=== PATIENT | female | born 1995 | race Two or more races ===

== ENCOUNTER 2021-03-01 12:10 | Observation (INO) | payer MEDICAID ==
[~2021-03-01] VITALS: Ht 162.6 cm; Wt 125.2 kg
[~2021-03-01 12:10] MED LIST: PREN-96 PO
[2021-03-01 12:58] LABS: Basophils # (auto) 0 10 ^3/uL (0-0.2); Basophils % (auto) 0.5 % (0.0-2.0); Eosinophils # (auto) 0 10 ^3/uL (0-0.8); Eosinophils % (auto) 0.5 % (0.0-7.0); Hematocrit 38.2 % (36.0-46.0); Hemoglobin 13.1 g/dL (12.2-16.2); Lymphocytes % (auto) 25.9 % (10.0-50.0); Mean Corpuscular Hemoglobin 30.9 pg (28.0-32.0); Mean Corpuscular Hgb Conc. 34.2 g/dL (32.0-36.0); Mean Corpuscular Volume 90.4 fL (80.0-100.0); Monocytes # (auto) 0.4 10 ^3/uL (0-1.3); Monocytes % (auto) 5.1 % (0.0-12.0); Neutrophils # (auto) 5.2 10 ^3/uL (1.6-8.6); Nucleated Red Blood Cells % 0.1 %; Red Blood Cells 4.22 10^6/uL (4.0-5.20); Red Cell Distribution Width 14.5 % (11.8-14.3); White Blood Cell 7.7 10^3/uL (4.4-10.8)
[2021-03-01 13:11] LABS: Albumin 2.8 g/dL (3.4-5.0); Calcium 8.4 mg/dL (8.5-10.1); Potassium 4.2 mmol/L (3.5-5.1); Uric Acid 4.2 mg/dL (2.6-6.0)
[2021-03-01 13:14] LABS: BUN/Creatinine Ratio 15.5; Bilirubin, Total 0.4 mg/dL (0.2-1.0); Total Protein 6.4 g/dL (6.4-8.2)
[2021-03-01 13:23] LABS: INR 0.95 (0.9-1.15); Partial Thromboplastin Time 29.1 sec (23.6-33.0)
[2021-03-01 13:30] LABS: Urine Bacteria FEW /hpf (None Seen); Urine Blood Negative /uL (Negative); Urine Mucus FEW (None Seen); Urine Specific Gravity 1.014 (1.001-1.035); Urine WBC 2 /hpf (0 - 5)
[2021-03-01 13:40] LABS: Protein, Urine 16.1 mg/dL (0.0-11.9)
[2021-03-07] MEDS ORDERED: IBUP600T27 PO (05:18)
== END 2021-03-01 14:07 | disposition home or self-care (01) ==
LOC: LDRP 12:10
PROVIDERS: ADMIT Obstetrics & Gynecology; ATTEND Obstetrics & Gynecology
DX: O13.3 Gestational [pregnancy-induced] hypertension without significant proteinuria, third trimester (principal); O62.9 Abnormality of forces of labor, unspecified; Z3A.39 39 weeks gestation of pregnancy
CPT/HCPCS: 36415; 59025; 80053; 81001; 81002; 82570; 84156; 84550; 85025; 85379; 85610; 85730; 94760; G0378; G0379

== ENCOUNTER 2021-03-03 08:03 | Observation (INO) | payer MEDICAID ==
[~2021-03-03] VITALS: Ht 4 cm; Wt 125.2 kg
[2021-03-07] MEDS ORDERED: IBUP600T27 PO (05:18)
== END 2021-03-03 09:52 | disposition home or self-care (01) ==
LOC: LDRP 08:03
PROVIDERS: ADMIT Obstetrics & Gynecology; ATTEND Obstetrics & Gynecology
DX: O62.9 Abnormality of forces of labor, unspecified (principal); O42.92 Full-term premature rupture of membranes, unspecified as to length of time between rupture and onset of labor; O48.0 Post-term pregnancy; Z3A.40 40 weeks gestation of pregnancy
CPT/HCPCS: 59025; 76818; 81002; 84112; 94760; G0378; G0379; Q0114

== ENCOUNTER 2021-03-03 21:42 | Observation (INO) | payer MEDICAID | END 2021-03-03 22:25 | disposition home or self-care (01) | LOC: LDRP 21:42 | PROVIDERS: ADMIT Obstetrics & Gynecology; ATTEND Obstetrics & Gynecology | DX: O48.0 Post-term pregnancy (principal); O62.9 Abnormality of forces of labor, unspecified; Z3A.40 40 weeks gestation of pregnancy | CPT/HCPCS: 59025; 81002; G0378 ==

== ENCOUNTER 2021-03-05 11:35 | Inpatient (IN) | payer MEDICAID ==
[~2021-03-05] VITALS: Ht 162.6 cm; Wt 125.2 kg
[2021-03-05 13:04] LABS: Urine Bacteria FEW /hpf (None Seen); Urine Blood 2+ /uL (Negative); Urine Hyaline Cast FEW /lpf (0 - 2); Urine Mucus FEW (None Seen); Urine Specific Gravity 1.027 (1.001-1.035); Urine WBC 4 /hpf (0 - 5)
[2021-03-05 13:15] LABS: Amphetamine Screen, Urine NEGATIVE (NEGATIVE); Barbiturate Scree,Urine NEGATIVE (NEGATIVE); Benzodiazephine Screen, Urine NEGATIVE (NEGATIVE); Cannabinoid Screen, Urine NEGATIVE (NEGATIVE); Cocaine Screen, Urine NEGATIVE (NEGATIVE); Opiate Scree,Urine NEGATIVE (NEGATIVE); Phencyclidine Screen, Urine NEGATIVE (NEGATIVE)
[2021-03-05 13:27] LABS: Basophils # (auto) 0 10 ^3/uL (0-0.2); Basophils % (auto) 0.2 % (0.0-2.0); Eosinophils # (auto) 0 10 ^3/uL (0-0.8); Eosinophils % (auto) 0.6 % (0.0-7.0); Hematocrit 37.3 % (36.0-46.0); Hemoglobin 12.8 g/dL (12.2-16.2); Lymphocytes # (auto) 2.1 10 ^3/uL (0.4-5.4); Mean Corpuscular Hemoglobin 30.8 pg (28.0-32.0); Mean Corpuscular Hgb Conc. 34.3 g/dL (32.0-36.0); Mean Corpuscular Volume 89.8 fL (80.0-100.0); Monocytes # (auto) 0.4 10 ^3/uL (0-1.3); Monocytes % (auto) 5.6 % (0.0-12.0); Neutrophils # (auto) 5.1 10 ^3/uL (1.6-8.6); Neutrophils % (auto) 66.6 % (37.0-80.0); Nucleated Red Blood Cells % 0.1 %; Red Blood Cells 4.16 10^6/uL (4.0-5.20); Red Cell Distribution Width 14.5 % (11.8-14.3); White Blood Cell 7.6 10^3/uL (4.4-10.8)
[2021-03-05 13:37] LABS: INR 0.94 (0.9-1.15); Partial Thromboplastin Time 28.8 sec (23.6-33.0)
[2021-03-05 13:41] LABS: Albumin 2.6 g/dL (3.4-5.0); Calcium 8.1 mg/dL (8.5-10.1); Potassium 4.1 mmol/L (3.5-5.1)
[2021-03-05 13:43] LABS: BUN/Creatinine Ratio 21.3
[2021-03-05 13:45] LABS: Bilirubin, Total 0.3 mg/dL (0.2-1.0); Total Protein 6.4 g/dL (6.4-8.2)
[2021-03-05] MEDS ORDERED: DERMOPLAST 60ML BOTTLE TOP PRN (13:45)
[2021-03-05] MEDS ORDERED: LIDOCAINE 2%HCL (LOCAL ANESTH.) INJ 20ML MDV IJ PRN (13:45)
[2021-03-05] MEDS ORDERED: BUTORPHANOL TARTRATE 2 MG/1 ML VIAL IV PRN ×2 (13:45)
[2021-03-05] MEDS ORDERED: PHISODERM TOP SOLN 240ML BTL TOP PRN (13:45)
[2021-03-05] MEDS ORDERED: WITCH HAZEL-GLYCERIN PAD TOP PRN (13:45)
[2021-03-05] MEDS ORDERED: PROMETHAZINE HCL 25 MG/ML 1ML IV PRN (13:45)
[2021-03-05] MEDS ORDERED: LACT. RINGERS/OXYTOCIN 20UNITS 500 ML IV ONE ×2 (13:45→14:15)
[2021-03-05] MEDS: LACTATED RINGER'S 1,000 ML IV SCH ×3 (14:26→23:11)
[2021-03-05] MEDS ORDERED: ONDANSETRON ODT 4 MG TAB PO PRN (21:15)
[2021-03-05] MEDS ORDERED: ACETAMINOPHEN 325 MG TAB PO PRN (21:15)
[2021-03-05] MEDS ORDERED: LACT. RINGERS/OXYTOCIN 20UNITS 1,000 ML IV SCH (21:15)
[2021-03-05] MEDS ORDERED: IBUPROFEN 600 MG TAB PO PRN (21:15)
[2021-03-05] MEDS: DOCUSATE SOD 100 MG CAP PO SCH (22:00)
[2021-03-05] MEDS ORDERED: fentaNYL CITRATE 100 MCG/2 ML VL IV ONE (23:15)
[2021-03-05] MEDS ORDERED: NALOXONE HCL 0.4 MG/ML VIAL IV ONE (23:15)
[2021-03-05] MEDS ORDERED: ROPIVACAINE HCL 200 ML EPI SCH (23:15)
[2021-03-05] MEDS ORDERED: LIDOCAINE HCL 2 %PF INJ 10ML AMP IJ ONE (23:15)
[2021-03-05] MEDS ORDERED: ePHEDrine SULFATE 50 MG/ML AMP IV ONE (23:15)
[2021-03-05] MEDS ORDERED: LACTATED RINGER'S 1,000 ML IV ONE (23:15)
[2021-03-06] MEDS ORDERED: ePHEDrine SULFATE 50 MG/ML AMP IV ONE (00:30)
[2021-03-06] MEDS ORDERED: SODIUM CHLORIDE 0.9% 500 ML IV PRN (00:30)
[2021-03-06] MEDS ORDERED: NALOXONE HCL 0.4 MG/ML VIAL IV ONE (00:30)
[2021-03-06] MEDS ORDERED: ROPIVACAINE HCL 200 ML EPI SCH (00:30)
[2021-03-06] MEDS ORDERED: LACTATED RINGER'S 500 ML IV ONE (00:30)
[2021-03-06] MEDS ORDERED: miSOPROStol 100 mcg TAB ONE (03:11)
[2021-03-06] MEDS ORDERED: miSOPROStol 100 mcg TAB PR PRN (03:30)
[2021-03-06] MEDS ORDERED: miSOPROStol 100 mcg TAB SL PRN (03:30)
[2021-03-06] MEDS: IBUPROFEN 800 MG TAB PO SCH ×5 (06:00→23:34)
[2021-03-06 06:49] VITALS: BP 99/51
[2021-03-06 10:35] VITALS: BP 107/65
[2021-03-06 15:26] VITALS: BP 101/55
[2021-03-06 19:00] VITALS: BP 133/63
[2021-03-06] MEDS: DOCUSATE SOD 100 MG CAP PO SCH (22:06)
[2021-03-06 23:00] VITALS: BP 133/59
[2021-03-07 02:52] VITALS: BP 124/72
[2021-03-07] MEDS ORDERED: IBUP600T27 PO ×2 (05:18)
[2021-03-07] MEDS: IBUPROFEN 800 MG TAB PO SCH (05:37)
[2021-03-07 07:07] VITALS: BP_SYST 118; BP_SYST 18; BP_DIAS 62
[2021-03-07 08:06] LABS: RPR Non Reactive (Non Reactive)
[2021-03-07 10:42] VITALS: BP 122/78
== END 2021-03-07 10:30 | disposition home or self-care (01) | DRG 560 ==
LOC: LDRP 11:35 → OBSVTOIN 13:45 → LDRP 13:49
PROVIDERS: ADMIT Obstetrics & Gynecology; ATTEND Obstetrics & Gynecology
PROC: 10E0XZZ Delivery of Products of Conception, External Approach (ICD-10-PCS; principal; 2021-03-05)
PROC: 0HQ9XZZ Repair Perineum Skin, External Approach (ICD-10-PCS; 2021-03-05)
PROC: 3E0R3BZ Introduction of Anesthetic Agent into Spinal Canal, Percutaneous Approach (ICD-10-PCS; 2021-03-05)
PROC: 00HU33Z Insertion of Infusion Device into Spinal Canal, Percutaneous Approach (ICD-10-PCS; 2021-03-05)
DX: O48.0 Post-term pregnancy (principal); Z37.0 Single live birth; O69.81X0 Labor and delivery complicated by cord around neck, without compression, not applicable or unspecified; Z20.822 Contact with and (suspected) exposure to COVID-19; Z3A.40 40 weeks gestation of pregnancy; O70.0 First degree perineal laceration during delivery
CPT/HCPCS: 36415; 59025; 59409; 62282; 76818; 80053; 80307; 81001; 81002; 85025; 85610; 85730; 86592; 86850; 86900; 86901; 87426; 94760; 96360; 96361; 96365; 96366; 96374; 96375; G0378; J2590